=== PATIENT | male | born 1965 | race Caucasian/White ===

== ENCOUNTER → 2019-06-26 | Outpatient (CLI) | payer MEDICAID, SELFPAY ==
[2019-06-26 14:26] VITALS: BMI 22.9
--- NOTE | 2019-06-26 14:37 | RAD_ITS ---
STUDY: X-RAY - RIGHT HAND REASON FOR EXAM: Male, 53 years old. Pain. TECHNIQUE: 3 view(s) of the hand. COMPARISON: None. FINDINGS: Normal radiocarpal articulation. Normal distal radioulnar joint. Normal visualized carpal bones. Normal carpal articulations Normal carpometacarpal articulation of the thumb. Normal second through fifth carpometacarpal joints. Normal metacarpi. Normal metacarpophalangeal joint of the thumb. Normal interphalangeal joint of the thumb. Normal proximal and distal phalanges of the thumb. Normal metacarpophalangeal joints of the second through fifth fingers. Normal proximal and distal interphalangeal joints of the second through fifth fingers. There is oblique lucency with somewhat well-corticated margins involving the proximal phalanx of the fifth toe suggestive of subacute to old fracture. Remainder of the phalanges are normal. The soft tissue structures are unremarkable. RAD/Hand Min 3 Views IMPRESSION: Oblique fracture of the proximal phalanx of the fifth finger, exact age indeterminate but suggested to be subacute to old, clinical correlation recommended. Remainder of the x-ray of the right hand unremarkable with no other sites suspicious for fracture. Electronically Signed: Susana Winston MD at 2:49 EST , Service support ,
== END | disposition home or self-care (01) ==
LOC: HPRAD 14:36
PROVIDERS: PCP Family Medicine; Referring Provider Orthopaedic Surgery; Visit Provider Orthopaedic Surgery
DX: M79.641 Pain in right hand (principal)
CPT/HCPCS: 73130

== ENCOUNTER → 2019-08-21 13:58 | Outpatient (CLI) | payer MEDICAID, SELFPAY ==
[2019-08-21 07:54] VITALS: BMI 22.9
--- NOTE | 2019-08-21 13:59 | RAD_ITS ---
STUDY: X-RAY - RIGHT HAND, ATTENTION FIFTH FINGER REASON FOR EXAM: Male, 54 years old. INJURY TO 5TH FINGER TECHNIQUE: 3 view(s) of the finger were obtained. COMPARISON: None. FINDINGS: Normal metacarpal head. Normal alignment of the metacarpophalangeal joint. Comminuted fracture of the proximal phalanx of the fifth finger with articular component. Approximately 3.2 mm separation along the major fracture line. The middle and distal phalanx of the fifth finger are unremarkable. Normal proximal interphalangeal joint. Normal distal interphalangeal joint. RAD/Finger(s) Min 2 Views IMPRESSION: Proximal phalangeal fracture of the fifth finger. Electronically Signed: Susana Winston MD at 1:56 EST , Service support ,
== END ==
PROVIDERS: PCP Family Medicine; Referring Provider Orthopaedic Surgery; Visit Provider Orthopaedic Surgery
DX: S62.619A Displaced fracture of proximal phalanx of unspecified finger, initial encounter for closed fracture (principal)
CPT/HCPCS: 73140

== ENCOUNTER → 2025-07-13 | Outpatient (REF) | payer MEDICAID, SELFPAY ==
[2025-07-13 07:10] LABS: Hematocrit 35.6 % (40-54); Hemoglobin 10.8 g/dL (13.0-16.5); Mean Corp Hgb Conc 30.3 g/dL (32-36); Mean Corpuscular Volume 94.4 fL (80-94); Mean Platelet Vol. 8.9 fl (6.2-12.0); Platelet Count 292 K/mm3 (150-450); RBC Distribution Width CV 15.9 % (11.6-14.6); RBC Distribution Width SD 54.5 fl (35.1-43.9); Red Blood Count 3.77 M/mm3 (4.6-6.2); White Blood Count 5.3 K/mm3 (4.4-11.0)
[2025-07-13 07:43] LABS: AST(SGOT) 18 U/L (<=37); Alanine Aminotransfer ALT/SGPT 17 U/L (<=46); Albumin, Serum 3.4 g/dL (3.4-4.8); Alkaline Phosphatase 50 U/L (40-129); Anion Gap 9 (5-15); BUN 21 mg/dL (4-19); BUN/Creat Ratio 21.9 RATIO (10-20); Calcium,Total 9.5 mg/dL (7.6-11.0); Carbon Dioxide 25.5 mmol/L (21.0-32.0); Chloride 105 mmol/L (98-108); Cholesterol 102 mg/dL (<=200); Globulin 4.0 g/dL (2.2-4.2); Glucose 266 mg/dL (70-99); Low Density Lipoprotein Calc. 48 mg/dL; Potassium 4.4 mmol/L (3.3-5.1); Triglycerides 129 mg/dL; Very Low Density Lipoprotein 26 mg/dL (5-40); Vitamin D,25 Hydroxy 19.4 ng/mL (30-100); cholesterol:hdl ratio screen 3.34
== END | disposition home or self-care (01) ==
LOC: OLS.ACW200 05:00
PROVIDERS: PCP Family Medicine; Visit Provider Family Medicine
DX: Z02.2 Encounter for examination for admission to residential institution (principal); M86.9 Osteomyelitis, unspecified; E11.621 Type 2 diabetes mellitus with foot ulcer; M62.81 Muscle weakness (generalized); I73.9 Peripheral vascular disease, unspecified
CPT/HCPCS: 36415; 80053; 80061; 82306; 83036; 84443; 85027